=== PATIENT | female | born 1995 | race Caucasian/White ===

== ENCOUNTER → 2017-11-03 17:37 | Outpatient (CLI) | payer MEDICAID ==
[2016-01-09 18:29] VITALS: BMI 32.7
[~2017-11-03 17:37] MED LIST: IBUPROFEN600 MG PO; PERCOCET 5-3251 TAB PO; PRENATAL COMPLE1 TAB PO
[2017-11-03 18:18] LABS: APPEARANCE HAZY (CLEAR); BILIRUBIN NEGATIVE (NEGATIVE); COLOR YELLOW (YELLOW); GLUCOSE NEGATIVE (NEGATIVE); KETONE NEGATIVE (NEGATIVE); NITRITE NEGATIVE (NEGATIVE); PROTEIN NEGATIVE (NEGATIVE); SPECIFIC GRAVITY 1.025 (1.005-1.020); UROBILINOGEN NORMAL (NORMAL)
[2017-11-03 18:20] LABS: BACTERIA MANY /hpf (NONE SEEN); MUCUS <1+ /lpf (NONE SEEN)
[2017-11-03 18:31] LABS: UDS - AMPHET NEGATIVE QUAL (NEGATIVE); UDS - BARB NEGATIVE QUAL (NEGATIVE); UDS - BENZO NEGATIVE QUAL (NEGATIVE); UDS - COCAINE NEGATIVE QUAL (NEGATIVE); UDS - OPIATE NEGATIVE QUAL (NEGATIVE); UDS - PCP NEGATIVE QUAL (NEGATIVE); UDS - THC POSITIVE QUAL (NEGATIVE)
== END | disposition home or self-care (01) ==
LOC: D.LDO 17:37
PROVIDERS: Obstetrics & Gynecology
DX: O26.899 Other specified pregnancy related conditions, unspecified trimester (principal); Z3A.00 Weeks of gestation of pregnancy not specified

== ENCOUNTER 2017-12-01 15:45 | Inpatient (IN) | payer SELFPAY ==
[~2017-12-01] VITALS: Ht 162.6 cm; Wt 81.6 kg
[2017-12-01 19:03] LABS: BASOPHILS 0.2 % (0-2); EOSINOPHILS 1.6 % (0-7); HEMATOCRIT 33.9 % (36.0-48.0); HEMOGLOBIN 11.3 g/dL (12-16); IMMATURE GRANULOCYTES 0.3 % (0-5); LYMPHOCYTES 27.7 % (15-50); MCH 31.2 pg (26.0-34.0); MCHC 33.3 g/dL (31.0-37.0); MCV 93.6 fL (80.0-100.0); MEAN PLATELET VOLUME 11.6 fL (7.4-10.4); MONOCYTES 6.4 % (2-11); NEUTROPHILS 63.8 % (40-80); RBC 3.62 10x6/uL (4.00-5.40); RDW 12.9 % (11.5-14.5); WBC 12.9 10x3/uL (4.8-10.8)
[2017-12-01 19:08] LABS: PLATELET COUNT 192 10x3/uL (130-400)
[2017-12-01 19:18] LABS: ALBUMIN 2.7 g/dL (3.4-5.0); ALKALINE PHOSPHATASE 123 U/L (46-116); ALT (SGPT) 20 U/L (10-68); CALC OSMOLALITY 274 mosm/kg (275-300); CALCIUM 8.9 mg/dL (8.5-10.1); CARBON DIOXIDE 26.3 mmol/L (21.0-32.0); CHLORIDE - SERUM 104 mmol/L (98-107); CREATININE - SERUM 0.8 mg/dL (0.6-1.3); GLUCOSE 94 mg/dL (74-106); POTASSIUM - SERUM 3.9 mmol/L (3.5-5.1); PROTEIN - SERUM 6.7 g/dL (6.4-8.2); SODIUM 138 mmol/L (136-145); UREA NITROGEN 9 mg/dL (7-18); eGFR NON AFRICAN AMERICAN > 90 mL/min (90-120)
[2017-12-01 20:48] VITALS: BP 117/71; Ht 162.6 cm; Wt 81.6 kg
[2017-12-01 21:43] LABS: UDS - AMPHET NEGATIVE QUAL (NEGATIVE); UDS - BARB NEGATIVE QUAL (NEGATIVE); UDS - BENZO NEGATIVE QUAL (NEGATIVE); UDS - COCAINE NEGATIVE QUAL (NEGATIVE); UDS - OPIATE NEGATIVE QUAL (NEGATIVE); UDS - PCP NEGATIVE QUAL (NEGATIVE); UDS - THC NEGATIVE QUAL (NEGATIVE)
[2017-12-01 21:48] LABS: APPEARANCE CLEAR (CLEAR); BILIRUBIN NEGATIVE (NEGATIVE); COLOR YELLOW (YELLOW); GLUCOSE NEGATIVE (NEGATIVE); KETONE NEGATIVE (NEGATIVE); NITRITE NEGATIVE (NEGATIVE); PROTEIN NEGATIVE (NEGATIVE); UROBILINOGEN NORMAL (NORMAL)
[2017-12-01 21:49] LABS: BACTERIA FEW /hpf (NONE SEEN); EPITHELIAL CELLS OCC /hpf (0-5); RED CELLS - URINE 0-5 /hpf (0-5); WHITE CELLS - URINE 0-5 /hpf (0-5)
[2017-12-01 21:52] LABS: HIV 1 & 2- RAPID SCREEN NEGATIVE (NEGATIVE)
[2017-12-03 08:19] LABS: RAPID PLASMA REAGIN Non Reactive (Non Reactive)
[2017-12-03 12:17] LABS: RUBELLA IGG <0.90 index (Immune >0.99)
== END 2017-12-02 19:15 | disposition home or self-care (01) | DRG 780 ==
LOC: D.LDO 15:45 → D.LD 17:38
PROVIDERS: Obstetrics & Gynecology
DX: O47.03 False labor before 37 completed weeks of gestation, third trimester (principal); O98.513 Other viral diseases complicating pregnancy, third trimester; Z3A.34 34 weeks gestation of pregnancy; O99.333 Smoking (tobacco) complicating pregnancy, third trimester

== ENCOUNTER 2017-12-18 13:05 | Inpatient (IN) | payer MEDICAID ==
[~2017-12-18] VITALS: Ht 162.6 cm; Wt 81.6 kg
--- NOTE | ~2017-12-18 | MORECARE ---
CASE MANAGEMENT DISCHARGE SUMMARY PATIENT: NICOLE RAMIREZ UNIT: [id number] ADM DATE: 12/18/17 AGE: 22 : [birth year] SEX: F ROOM/BED: D.1273 AUTHOR: RACQUEL,DOC PHYSICIAN: REFERRING PHYSICIAN: ARTURO ORO MD DATE OF SERVICE: 12/24/17 Discharge Plan Patient Name: NICOLE RAMIREZ Facility: [facility]:[place] : 1995 Planned Disposition: Home Anticipated Discharge Date: Discharge Date: 12/20/2017 Expected LOS: Initial Reviewer: [email or web address] Initial Review Date: 12/18/2017 Generated: 12/24/17 8:39 pm Comments DCP- Discharge Planning Updated by [email or web address]: Nini Sams on 12/19/17 4:[address] CM SPOKE WITH VIDAL FROM THE NURSEY. [facility] HAS VISITED WITH THE PATIENT THIS PM. THE MOTHER AND THE ARE NOT BEING DISCHARGED TODAY. INFANT ON HOLD. PLAN FOR VISIT TO THE GRANDMOTHER'S HOME BY [facility]. REPORTEDLY THERE IS AN OPEN CASE. CM TO FOLLOW TO ASSIST IS APPROPRIATE. DCP- Discharge Planning Updated by [email or web address]: Nini Sams on 12/19/17 1:[address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facility] IN [place] ASSISTANCE- RECEIVES WIC FOR 2 OF THE CHILDREN AND FOOD STAMPS SHE PLANS TO BREAST AND BOTTLE FEED. MR FRAGA STATES HE IS THE FATHER OF THREE OF THE CHILDREN. SHE STATES THEY HAVE BEEN TOGETHER FOR 4- 4 1/2 YEARS.THE PATIENT ADMITS SHE SMOKES "WEED" BUT STATES SHE DOES NOT KNOW HOW AMPHETAMINES WERE PRESENT IN HER URINE. SHE HAS ALL OF HER CHILDREN WITH HER. DENIES ANY AGENCIES INVOLVED WITH THE FAMILY. SHE DID STATE THAT [facility] VISITED THEM A "COUPLE OF WEEKS AGO" DUE TO A FALSE ALLEGATION FROM A NEIGHBOR. REPORTEDLY NO FOLLOW UP WAS REQUIRED. ADVISED CPS HAD BEEN CALLED REQUIRED BY LAW. ADVISED CPS WOULD LIKELY VISIT WITHIN THE NEXT 24 HRS. ADVISED CM IS AVAILABLE IF ANY NEEDS. SHE STATES SHE HAD ALL NECESSARY SUPPLIES AND EQUIPMENT FOR THE INFANT CAN OBTAIN FORMULA AND DIAPERS. DENIES ANY NEEDS. CM TO FOLLOW. SPOKE WITH DR GUILLAUME AND VIDAL IN THE NURSEY. DCPIA - Discharge Planning Initial Assessment Updated by [email or web address]: Nini Sams on 12/19/17 2:15 pm * Is the patient Alert and Oriented? Yes * How many steps to enter\\exit or inside your home? 5/6 w/ cardenas * PCP none * Pharmacy [facility] * Preadmission Environment Home with Family * ADLs Independent * Equipment None * Other Equipment N/A * List name and contact numbers for known caregivers / representatives who currently or will assist patient after discharge: CAITIE RAMIREZ- FATHER- [phone] * Verbal permission to speak to the caregivers and representatives has been obtained from the patient. Yes * Community resources currently utilized None * Please name any agencies selected above. N/A * Additional services required to return to the preadmission environment? No * Can the patient safely return to the preadmission environment? Yes * Has this patient been hospitalized within the prior 30 days at any hospital? No Last DP export: 12/19/17 4:32 Patient Name: NICOLE RAMIREZ Page 19647 at 1939 All edits/amendments must be made on the electronic document DICTATION DATE: 12/24/171938 AIRLINE ATTENDANT: MARTHA 12/24/171938 RPT#: [id number] DC DATE:12/20/17 STATUS: DIS IN [facility] [address] [place] [address] END OF REPORT
--- NOTE | ~2017-12-18 | MORECARE ---
CASE MANAGEMENT DISCHARGE SUMMARY PATIENT: NICOLE RAMIREZ UNIT: [id number] ADM DATE: 12/18/17 AGE: 22 : [birth year] SEX: F ROOM/BED: D.1273 AUTHOR: RACQUEL,DOC PHYSICIAN: REFERRING PHYSICIAN: ARTURO ORO MD DATE OF SERVICE: 12/19/17 Discharge Plan Patient Name: NICOLE RAMIREZ Facility: [facility]:[place] : 1995 Planned Disposition: Home Anticipated Discharge Date: Discharge Date: Expected LOS: Initial Reviewer: [email or web address] Initial Review Date: 12/18/2017 Generated: 12/19/17 6:32 pm Comments DCP- Discharge Planning Updated by [email or web address]: Nini Sams on 12/19/17 4:[address] CM SPOKE WITH VIDAL FROM THE NURSEY. [facility] HAS VISITED WITH THE PATIENT THIS PM. THE MOTHER AND THE ARE NOT BEING DISCHARGED TODAY. ON HOLD. PLAN FOR VISIT TO THE GRANDMOTHER'S HOME BY [facility]. REPORTEDLY THERE IS AN OPEN CASE. CM TO FOLLOW TO ASSIST IS APPROPRIATE. DCP- Discharge Planning Updated by [email or web address]: Nini Sams on 12/19/17 1:[address] LATE ENTRY 1015 CM VISITED WITH PATIENT AND THE FATHER OF THE BABY, VARUN FRAGA, AT THE BEDSIDE THIS AM. MS RAMIREZ GAVE PERMISSION FOR DISCUSSION WITH THE FOB IN THE ROOM. SHE , HER FOUR CHILDREN AND MR FRAGA LIVE WITH THE MATERNAL GRANDMOTHER IN A THREE BEDROOM HOME. THE HOUSE BELONGS TO HER UNCLE. THE CHILDREN ARE AGES 1,2, 3 AND 5 YEARS OF AGE. THERE ARE 3 BOYS AND 1 GIRL. THE PATIENT AND FATHER OF BABY ARE BOTH UNEMPLOYED. SHE DOES NOT HAVE A CAR. STATED SHE EXCHANGED IT FOR A HOUSE THAT NEEDS "FIXING UP". SHE STATES THIS IS WHY SHE DID NOT HAVE CARE. NO TRANSPORTATION. STATES HER MOTHER HELPS HER GET THE CHILDREN TO DOCTOR'S APPOINTMENTS. DR CARLOS SANCHEZ IS THE MD FOR THE CHILDREN. PATIENT- NO PCP PHARMACY- [facility] IN [place] [facility]- RECEIVES WIC FOR 2 OF THE CHILDREN AND FOOD STAMPS SHE PLANS TO BREAST AND BOTTLE FEED. MR FRAGA STATES HE IS THE FATHER OF THREE OF THE CHILDREN. SHE STATES THEY HAVE BEEN TOGETHER FOR 4- 4 1/2 YEARS.THE PATIENT ADMITS SHE SMOKES "WEED" BUT STATES SHE DOES NOT KNOW HOW AMPHETAMINES WERE PRESENT IN HER URINE. SHE HAS ALL OF HER CHILDREN WITH HER. DENIES ANY AGENCIES INVOLVED WITH THE FAMILY. SHE DID STATE THAT [facility] VISITED THEM A "COUPLE OF WEEKS AGO" DUE TO A FALSE ALLEGATION FROM A NEIGHBOR. REPORTEDLY NO FOLLOW UP WAS REQUIRED. ADVISED CPS HAD BEEN CALLED REQUIRED BY LAW. ADVISED CPS WOULD LIKELY VISIT WITHIN THE NEXT 24 HRS. ADVISED CM IS AVAILABLE IF ANY NEEDS. SHE STATES SHE HAD ALL NECESSARY SUPPLIES AND EQUIPMENT FOR THE INFANT CAN OBTAIN FORMULA AND DIAPERS. DENIES ANY NEEDS. CM TO FOLLOW. SPOKE WITH DR GUILLAUME AND VIDAL IN THE NURSEY. DCPIA - Discharge Planning Initial Assessment Updated by [email or web address]: Nini Sams on 12/19/17 2:15 pm * Is the patient Alert and Oriented? Yes * How many steps to enter\\exit or inside your home? 5/6 w/ cardenas * PCP none * Pharmacy [facility] * Preadmission Environment Home with Family * ADLs Independent * Equipment None * Other Equipment N/A * List name and contact numbers for known caregivers / representatives who currently or will assist patient after discharge: CAITIE RAMIREZ- FATHER- [phone] * Verbal permission to speak to the caregivers and representatives has been obtained from the patient. Yes * Community resources currently utilized None * Please name any agencies selected above. N/A * Additional services required to return to the preadmission environment? No * Can the patient safely return to the preadmission environment? Yes * Has this patient been hospitalized within the prior 30 days at any hospital? No Last DP export: 12/19/17 1:47 Patient Name: NICOLE RAMIREZ Page [id number] at 1732 All edits/amendments must be made on the electronic document DICTATION DATE: 12/19/171730 GROUP THERAPY COUNSELOR: MARTHA 12/19/171730 RPT#: [id number] DC DATE: STATUS: ADM IN [facility] [address] [place] [address] END OF REPORT
--- NOTE | ~2017-12-18 | MORECARE ---
CASE MANAGEMENT DISCHARGE SUMMARY PATIENT: NICOLE RAMIREZ UNIT: [id number] ADM DATE: 12/18/17 AGE: 22 : [birth year] SEX: F ROOM/BED: D.1273 AUTHOR: RACQUEL,DOC PHYSICIAN: REFERRING PHYSICIAN: ARTURO ORO MD DATE OF SERVICE: 12/19/17 Discharge Plan Patient Name: NICOLE RMAIREZ Facility: [facility]:[place] : 1995 Planned Disposition: Home Anticipated Discharge Date: Discharge Date: Expected LOS: Initial Reviewer: [email or web address] Initial Review Date: 12/18/2017 Generated: 12/19/17 3:47 pm Comments DCP- Discharge Planning Updated by [email or web address]: Nini Sams on 12/19/17 1:[address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facility] IN [place]- RECEIVES WIC FOR 2 OF THE CHILDREN AND FOOD STAMPS SHE PLANS TO BREAST AND BOTTLE FEED. MR FRAGA STATES HE IS THE FATHER OF THREE OF THE CHILDREN. SHE STATES THEY HAVE BEEN TOGETHER FOR 4- 4 1/2 YEARS.THE PATIENT ADMITS SHE SMOKES "WEED" BUT STATES SHE DOES NOT KNOW HOW AMPHETAMINES WERE PRESENT IN HER URINE. SHE HAS ALL OF HER CHILDREN WITH HER. DENIES ANY AGENCIES INVOLVED WITH THE FAMILY. SHE DID STATE THAT [facility] VISITED THEM A "COUPLE OF WEEKS AGO" DUE TO A FALSE ALLEGATION FROM A NEIGHBOR. REPORTEDLY NO FOLLOW UP WAS REQUIRED. ADVISED CPS HAD BEEN CALLED REQUIRED BY LAW. ADVISED CPS WOULD LIKELY VISIT WITHIN THE NEXT 24 HRS. ADVISED CM IS AVAILABLE IF ANY NEEDS. SHE STATES SHE HAD ALL NECESSARY SUPPLIES AND EQUIPMENT FOR THE CAN OBTAIN FORMULA AND DIAPERS. DENIES ANY NEEDS. CM TO FOLLOW. SPOKE WITH DR GUILLAUME AND VIDAL IN THE NURSEY. DCPIA - Discharge Planning Initial Assessment Updated by [id number]: Nini Sams on 12/19/17 2:15 pm * Is the patient Alert and Oriented? Yes * How many steps to enter\\exit or inside your home? 5/6 w/ cardenas * PCP none * Pharmacy [facility] ON [facility] * Preadmission Environment Home with Family * ADLs Independent * Equipment None * Other Equipment N/A * List name and contact numbers for known caregivers / representatives who currently or will assist patient after discharge: CAITIE RAMIREZ- [facility]- [phone] * Verbal permission to speak to the caregivers and representatives has been obtained from the patient. Yes * Community resources currently utilized None * Please name any agencies selected above. N/A * Additional services required to return to the preadmission environment? No * Can the patient safely return to the preadmission environment? Yes * Has this patient been hospitalized within the prior 30 days at any hospital? No Last DP export: 12/19/17 1:20 Patient Name: NICOLE RAMIREZ Page 56169 at 1448 All edits/amendments must be made on the electronic document DICTATION DATE: 12/19/171446 [employer] BUSINESS ANALYST: MARTHA 12/19/171446 RPT#: [id number] DC DATE: STATUS: ADM IN [facility] [address] [place] [address] END OF REPORT
--- NOTE | ~2017-12-18 | MORECARE ---
CASE MANAGEMENT DISCHARGE SUMMARY PATIENT: NICOLE RAMIREZ UNIT: [id number] ADM DATE: 12/18/17 AGE: 22 : [birth year] SEX: F ROOM/BED: D.1273 AUTHOR: CRISTOFER CLEMENT PHYSICIAN: REFERRING PHYSICIAN: ARTURO ORO MD DATE OF SERVICE: 12/19/17 Discharge Plan Patient Name: NICOLE RAMIREZ Facility: [facility]:[place] : 1995 Planned Disposition: Home Anticipated Discharge Date: Discharge Date: Expected LOS: Initial Reviewer: [email or web address] Initial Review Date: 12/18/2017 Generated: 12/19/17 3:13 pm Patient Name: NICOLE RAMIREZ Page 21628 at 1413 All edits/amendments must be made on the electronic document DICTATION DATE: 12/19/171411 EMT I/85: MARTHA 12/19/17 141 RPT#: [id number] DC DATE: STATUS: ADM IN [facility] [address] [place] [address] END OF REPORT
--- NOTE | ~2017-12-18 | OP ---
PATIENT NAME: NICOLE RAMIREZ MEDICAL RECORD: [id number] :[birth year] LOCATION:[facility] [id number] ADMISSION DATE:12/18/17 SURGEON: EARNEST MARTINEZ MD DATE OF OPERATION: 12/18/2017 PREDELIVERY DIAGNOSES: 1. Poor care. 2. Drug abuse. 3. Active labor at 36 weeks and 6 days. POSTDELIVERY DIAGNOSES: 1. Poor care. 2. Drug abuse. 3. Mother delivered at 36 weeks and 6 days. PROCEDURE: Vaginal delivery. ATTENDING: Earnest Martinez MD ANESTHETIC: None. FINDINGS: Viable female , vertex presentation, ANTHONY, Apgars 9 and 9, weight 6 pounds. First-degree laceration without repair. Placenta spontaneous and intact. ESTIMATED BLOOD LOSS: 300 cc. DISPOSITION: Mother and infant recovered in the room. TRANSINT:[id number] Voice Confirmation ID: [id number] DOCUMENT ID: [id number] EARNEST MARTINEZ MD at 1015 CC: [id number] DICTATION DATE: 12/18/17 1628 TRUCKER: 12/18/17 1659 ADM IN [facility] [address] [place] [address]
--- NOTE | ~2017-12-18 | DS ---
PATIENT:NICOLE RAMIREZ :[birth year] MEDICAL RECORD: [id number] DISCHARGE SUMMARY ADMISSION DATE: 12/18/17 DISCHARGE DATE: 12/20/17 ADMISSION DATE: 12/18/2017. DATE OF DISCHARGE: 12/20/2017. ADMISSION DIAGNOSES: 1. Active labor at 36 weeks and 6 days. 2. History of drug abuse. 3. Limited care. DISCHARGE DIAGNOSES: 1. Active labor at 36 weeks and 6 days. 2. History of drug abuse. 3. Limited care. PROCEDURE: Vaginal delivery. ATTENDING: Arturo Oro MD HISTORY OF PRESENT ILLNESS: See the H&P in the chart. SUMMARY OF HOSPITALIZATION: The patient was admitted to the hospital and delivered without incident. At the time of discharge, is being held by outreach and education social worker. The patient has no complaints, adequate pain control with Toradol and Tylenol. The patient will be discharged home with the use of [id number] medication for her pain management. The patient will be followed up in 6 weeks at [facility]. precautions have been reviewed with the patient as well as compliance counseling. TRANSINT:[id number] Voice Confirmation ID: [id number] DOCUMENT ID: [id number] ARTURO ORO MD at 1610 CC: [id number] DICTATION DATE: 12/20/17 1018 MUSIC REHABILITATION THERAPIST: 12/21/17 0207 DIS IN 12/20/17 [facility] [address] [place] [address]
--- NOTE | ~2017-12-18 | MORECARE ---
CASE MANAGEMENT DISCHARGE SUMMARY PATIENT: NICOLE RAMIREZ UNIT: [id number] ADM DATE: 12/18/17 AGE: 22 : [birth year] SEX: F ROOM/BED: D.[facility] AUTHOR: CRISTOFER CLEMENT PHYSICIAN: REFERRING PHYSICIAN: ARTURO ORO MD DATE OF SERVICE: 12/19/17 Discharge Plan Patient Name: NICOLE RAMIREZ Facility: [facility]:[place] : 1995 Planned Disposition: Home Anticipated Discharge Date: Discharge Date: Expected LOS: Initial Reviewer: [email or web address] Initial Review Date: 12/18/2017 Generated: 12/19/17 3:20 pm DCPIA - Discharge Planning Initial Assessment Updated by [email or web address]: Nini Sams on 12/19/17 2:15 pm * Is the patient Alert and Oriented? Yes * How many steps to enter\exit or inside your home? 5/6 w/ cardenas * PCP none * Pharmacy [facility] ON [facility] * Preadmission Environment Home with Family * ADLs Independent * Equipment None * Other Equipment N/A * List name and contact numbers for known caregivers / representatives who currently or will assist patient after discharge: CAITIE RAMIREZ- [facility]- [phone] * Verbal permission to speak to the caregivers and representatives has been obtained from the patient. Yes * Community resources currently utilized None * Please name any agencies selected above. N/A * Additional services required to return to the preadmission environment? No * Can the patient safely return to the preadmission environment? Yes * Has this patient been hospitalized within the prior 30 days at any hospital? No Last DP export: 12/19/17 1:13 Patient Name: NICOLE RAMIREZ Page 02008 at 1420 All edits/amendments must be made on the electronic document DICTATION DATE: 12/19/17 142 SENIOR COST ACCOUNTANT: MARTHA 12/19/17 142 RPT#: [id number] DC DATE: STATUS: ADM IN [facility] [address] [place] [address] END OF REPORT
[2017-12-18 14:27] LABS: APPEARANCE CLEAR (CLEAR); BILIRUBIN NEGATIVE (NEGATIVE); COLOR YELLOW (YELLOW); GLUCOSE NEGATIVE (NEGATIVE); KETONE NEGATIVE (NEGATIVE); NITRITE NEGATIVE (NEGATIVE); PROTEIN NEGATIVE (NEGATIVE); UROBILINOGEN NORMAL (NORMAL)
[2017-12-18 14:28] LABS: BACTERIA FEW /hpf (NONE SEEN); EPITHELIAL CELLS 0-5 /hpf (0-5); WHITE CELLS - URINE 0-5 /hpf (0-5)
[2017-12-18 14:38] LABS: UDS - AMPHET POSITIVE QUAL (NEGATIVE); UDS - BARB NEGATIVE QUAL (NEGATIVE); UDS - BENZO NEGATIVE QUAL (NEGATIVE); UDS - COCAINE NEGATIVE QUAL (NEGATIVE); UDS - OPIATE NEGATIVE QUAL (NEGATIVE); UDS - PCP NEGATIVE QUAL (NEGATIVE); UDS - THC POSITIVE QUAL (NEGATIVE)
[2017-12-18 14:42] VITALS: BP 111/62; Ht 162.6 cm; Wt 81.6 kg
[2017-12-18 15:09] LABS: HEMATOCRIT 30.6 % (36.0-48.0); HEMOGLOBIN 10.2 g/dL (12-16); MCHC 33.3 g/dL (31.0-37.0); MEAN PLATELET VOLUME 11.4 fL (7.4-10.4); RBC 3.29 10x6/uL (4.00-5.40); RDW 13.3 % (11.5-14.5); WBC 12.6 10x3/uL (4.8-10.8)
[2017-12-18 20:00] VITALS: BP 112/71
[2017-12-19 06:03] LABS: BASOPHILS 0.2 % (0-2); EOSINOPHILS 1.2 % (0-7); HEMATOCRIT 30.6 % (36.0-48.0); HEMOGLOBIN 10.3 g/dL (12-16); IMMATURE GRANULOCYTES 0.2 % (0-5); LYMPHOCYTES 33.1 % (15-50); MCH 30.7 pg (26.0-34.0); MCHC 33.7 g/dL (31.0-37.0); MCV 91.3 fL (80.0-100.0); MEAN PLATELET VOLUME 11.3 fL (7.4-10.4); MONOCYTES 7.8 % (2-11); NEUTROPHILS 57.5 % (40-80); PLATELET COUNT 164 10x3/uL (130-400); RBC 3.35 10x6/uL (4.00-5.40); RDW 13.2 % (11.5-14.5); WBC 11.2 10x3/uL (4.8-10.8)
[2017-12-19 07:15] VITALS: BP 112/71
[2017-12-19 20:19] VITALS: BP 113/63
[2017-12-20 08:16] VITALS: BP 121/71
[2017-12-20 15:15] VITALS: BP 127/78
[2017-12-21 07:30] LABS: RAPID PLASMA REAGIN Non Reactive (Non Reactive)
== END 2017-12-20 16:45 | disposition home or self-care (01) | DRG 807 ==
LOC: D.LDO 13:05 → D.LD 13:49
PROVIDERS: Obstetrics & Gynecology
PROC: 10E0XZZ Delivery of Products of Conception, External Approach (ICD-10-PCS; principal; 2017-12-18)
DX: O99.324 Drug use complicating childbirth (principal); Z37.0 Single live birth; F15.10 Other stimulant abuse, uncomplicated; F12.10 Cannabis abuse, uncomplicated; Z3A.36 36 weeks gestation of pregnancy; O70.0 First degree perineal laceration during delivery